=== PATIENT | female | born 1985 | race Caucasian/White ===

== ENCOUNTER 2016-09-05 19:32 | Emergency (ER) | payer OTHER ==
[~2016-09-05] VITALS: Ht 172.7 cm; Wt 95.2 kg
[~2016-09-05 19:32] MED LIST: ALBUTEROL SULF8.5 GM INH; FLEXERIL10 MG PO; IBUPROFEN800 MG PO; NORCO 5-325 TA1 EACH PO; ROBAXIN-750750 MG PO
== END 2016-09-05 21:25 | disposition home or self-care (01) ==
LOC: ED 19:32
DX: S16.1XXA Strain of muscle, fascia and tendon at neck level, initial encounter (principal); S40.012A Contusion of left shoulder, initial encounter; S90.31XA Contusion of right foot, initial encounter; J45.909 Unspecified asthma, uncomplicated; F17.200 Nicotine dependence, unspecified, uncomplicated; Z88.1 Allergy status to other antibiotic agents; V89.2XXA Person injured in unspecified motor-vehicle accident, traffic, initial encounter
CPT/HCPCS: 72040; 73030; 73630; 99283

== ENCOUNTER 2019-10-04 18:38 | Emergency (ER) | payer OTHER ==
[~2019-10-04] VITALS: Ht 172.7 cm; Wt 95.2 kg
== END 2019-10-04 20:30 | disposition left against medical advice (07) ==
LOC: ED 18:38
DX: Z53.21 Procedure and treatment not carried out due to patient leaving prior to being seen by health care provider (principal)

== ENCOUNTER 2019-10-07 21:14 | Emergency (ER) | payer OTHER ==
[~2019-10-07] VITALS: Ht 172.7 cm; Wt 99.8 kg
--- OUTSIDE RECORDS SUMMARY | 2019-10-07 21:18 | XMS ---
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 CRITERIA MET - [facility] - 2 Visits in 30 Days CARE PROVIDERS There are no care providers on record at this time. Declan has no Care Guidelines for this patient. [facility] MO[facility] NOTE: Visits indicate total known visits. ED/UCC VISIT TRACKING (12 MO.) [facility]07[facility]2019 21:15 [facility] COMPLAINT: - ARM PAIN[facility]NON INJ [facility] COMPLAINT: - HEAD PAIN DIAGNOSES: - Procedure and treatment not carried out due to patient leavin INPATIENT VISIT TRACKING (12 MO.) No inpatient visits to display in this time frame [email or web address]
[2019-10-07] MEDS ORDERED: VENTOLIN HFA18 GM INH (21:36)
[2019-10-07] MEDS ORDERED: NORCO 5-325 TA1 EACH PO (21:37)
[2019-10-07] MEDS ORDERED: LISINOPRIL20 MG PO (21:37)
--- NOTE | 2019-10-08 14:37 | EKG ---
[facility] [address] [facility] [place], [place] [address] Signed Normal sinus rhythm Normal ECG No previous ECGs available Confirmed by SHERWIN UREÑA MD ([id number]) on 10/08/2019 2:37:30 PM Electronically Signed By: SHERWIN UREÑA MD 10/08/19 1437 PATIENT NAME: JOSÉGARTHDavid VERGARA Electrocardiogram DATE OF : 83 PHYSICIAN: SHERWIN UREÑA MD REPORT #: [id number] REPORT IS CONFIDENTIAL AND NOT TO BE RELEASED WITHOUT AUTHORIZATION
== END 2019-10-07 22:56 | disposition home or self-care (01) ==
LOC: ED 21:14
DX: M79.602 Pain in left arm (principal); I10 Essential (primary) hypertension; J45.909 Unspecified asthma, uncomplicated; F17.200 Nicotine dependence, unspecified, uncomplicated; Z88.8 Allergy status to other drugs, medicaments and biological substances; Z79.899 Other long term (current) drug therapy
CPT/HCPCS: 93005; 93010; 99283-25; A9270

== ENCOUNTER 2020-03-11 06:34 | Day surgery (SDC) | payer OTHER ==
[~2020-03-11] VITALS: Ht 172.7 cm; Wt 103.2 kg
[~2020-03-11 06:34] MED LIST changes: +LISINOPRIL20 MG PO; +VENTOLIN HFA18 GM INH
[2020-03-11] MEDS ORDERED: HYDROCHLOROTHIA25 MG PO (06:56)
[2020-03-11] MEDS ORDERED: TOPIRAMATE25 MG PO (06:57)
[2020-03-11] MEDS ORDERED: GABAPENTIN300 MG PO (06:58)
--- NOTE | 2020-03-11 07:18 | NUR ---
STATES SHE HAS VERTIGO FREQUENTLY. WAITING FOR TESTING.
--- NOTE | 2020-03-11 07:58 | NUR ---
03/11/20 0758 Kathya Nieves 0754- PT ARRIVES TO PACU AROUSABLE TO VOICE, FALLS TO SLEEP WHEN NOT BEING TALKED TO. RESP EVEN AND UNLABORED. OXYGEN SAT MID TO HIGH 90'S ON 2L O2 VIA NC. PT PASSING FLATUS.
--- NOTE | 2020-03-12 08:34 | OR ---
[facility] [address] [place], [place] [address] Signed DATE OF OPERATION: 03/11/2020 SURGEON: Daniel Moe MD PREOPERATIVE DIAGNOSES: 1. Intermittent diarrhea with rectal bleeding. 2. Sister with history of colitis. POSTOPERATIVE DIAGNOSIS: Unremarkable colonoscopy. PROCEDURE: Colonoscopy with random cold biopsies of the terminal ileum and colon. ESTIMATED BLOOD LOSS: None. INDICATIONS: Garth is a 34-year-old female asked to see me for colonoscopy. In the last month or so, she has been having intermittent episodes of diarrhea associated with bright red blood in the stool. She said it is not every bowel movement. She has tried pxnx-anl-yfkkxgd stool softeners and apparently it made her more constipated. She has tried fiber products, but it made her stomach feel terrible. She has no family history of colon cancer or polyps. She says her sister has some type of colitis for which she takes medications. She also had COVID back in August of 2019. I gave Garth a pamphlet in the office on colonoscopy. We reviewed the nature of the test along with its risks including, but not limited to gas bloating, crampy abdominal pain, bleeding, perforation requiring surgery, and missed diagnosis. We also reviewed the need for IV conscious sedation. She had expressed understanding and wished to proceed. PROCEDURE NOTE: Garth was taken into our endoscopy suite and placed in the left lateral decubitus position. She was talking to us about her ongoing evaluation for her vertigo. She was also a bit anxious for the procedure. In the end, she used 8 mg of Versed and 125 mcg of fentanyl to cover the case. A digital rectal exam was performed and this was unremarkable. No external hemorrhoids. Good sphincter tone. The adult colonoscope was introduced and advanced all around into the cecum under direct visualization of camera without difficulty. Her prep was quite excellent. We could easily see the appendiceal orifice and the ileocecal valve. She took a little extra sedation and abdominal compression in order to advance the scope. We then turned the scope into the terminal Electronically Signed By: DANIEL MOE MD 03/12/20 0834 PATIENT NAME: GARTH KUMAR OPERATIVE REPORT DATE OF : 83 REPORT #: [id number] PHYSICIAN: DANIEL MOE MD PCP: CASSIE BLISS PAC REPORT IS CONFIDENTIAL AND NOT TO BE RELEASED WITHOUT AUTHORIZATION [facility] [address] [place], [place] [address] Signed ileum about 15 cm or so. It looked very healthy to us. We went ahead and took a couple of biopsies out of the terminal ileum. We then withdrew the scope into the colon. The scope was withdrawn throughout the colon. There was no findings whatsoever anywhere in the colon including inflammatory changes. We took random biopsies throughout the colon along with pictures for photodocumentation. The rectum was unremarkable. Upon retroflexion of scope, there was no additional pathology noted above the anal canal. After this, the gas was suctioned out and the colonoscope removed. Garth tolerated the procedure quite well. RECOMMENDATIONS: I will see Garth back in my office in 7 to 14 days to review her results. If she has ongoing issues, she could consider an upper endoscopy with biopsies along with small-bowel follow-through and even a CT scan of abdomen and pelvis and/or a capsule endoscopy. Daniel Moe MD ALB/MODL /[id number] cc: MD Cassie Barrientos PA Copies: DANIEL MOE MD ~ Electronically Signed By: DANIEL MOE MD 03/12/20 0834 PATIENT NAME: GARTH KUMAR URSULA OPERATIVE REPORT DATE OF : 83 REPORT #: [id number] PHYSICIAN: DANIEL MOE MD PCP: CASSIE BLISS PAC REPORT IS CONFIDENTIAL AND NOT TO BE RELEASED WITHOUT AUTHORIZATION
--- NOTE | 2020-03-12 11:09 | PATH ---
[facility] [address] [place], [place] [address] Signed SPECIMEN(S): A TERMINAL ILEUM SPECIMEN(S): B COLON BIOPSY SPECIMEN SOURCE: A. TERMINAL ILEUM B. COLON BIOPSY CLINICAL HISTORY: Colonoscopy with possible biopsy and/or polypectomy. History of diarrhea. MICROSCOPIC DESCRIPTION: Histologic sections of all submitted blocks are examined by light microscopy. These findings, together with the gross examination, support the pathologic diagnosis. FINAL PATHOLOGIC DIAGNOSIS: A. Terminal ileum, biopsy: - Ileal mucosa with no histopathologic abnormality. - Negative for active inflammation or granulomata. - Negative for dysplasia or malignancy. B. Colon, biopsy: - Fragments of colonic mucosa with focal muscularis mucosa thickening. - Negative for active, chronic, or microscopic colitis. - Negative for dysplasia or malignancy. COMMENT: Regarding specimen B: A focal fragment of colonic mucosa demonstrates thickened muscularis mucosa. This could represent a tangential cut of the muscularis mucosa or a small (incidental) leiomyoma. Correlation with colonoscopic findings is recommended. NAL:cml:C2NR GROSS DESCRIPTION: Two specimens are received in two containers, labeled "KR." A. The specimen, labeled "KR, 1," and designated on the requisition "terminal ileum," is received in formalin and consists of two orellana soft tissue fragments that measure 0.4-0.5 cm in greatest dimension. The specimen is entirely submitted in cassette (A1). B. The specimen, labeled "KR, 2," and designated on the requisition "random colon," is received in formalin and consists of four orellana soft tissue fragments that measure 0.3-0.4 cm in greatest dimension. The specimen is entirely submitted in cassette (B1). PATIENT NAME: GARTH KUMAR PATHOLOGY DATE OF : 83 REPORT #: [id number] PHYSICIAN: CANDI DOHERTY PCP: CASSIE BLISS PAC REPORT IS CONFIDENTIAL AND NOT TO BE RELEASED WITHOUT AUTHORIZATION [facility] [address] [place] [address] Signed AT (under the direct supervision of a pathologist) The Gross Description was prepared using a voice recognition system. The report was reviewed for accuracy; however, sound-alike word errors, addition and/or deletions may occur. If there is any question about this report, please contact Client Services. PERFORMING LABORATORY: The technical component was performed by [facility] [address] (Vacation Planner: Marcella Garza MD; CLIA# [id number]). [facility] [place], [address] [address] (CLIA# [id number]). Diagnostician: Saige Parrish MD Pathologist Electronically Signed 03/12/2020 Copies: ~ PATIENT NAME: GARTH KUMAR PATHOLOGY DATE OF : 83 REPORT #: [id number] PHYSICIAN: CANDI DOHERTY PCP: CASSIE BLISS PAC REPORT IS CONFIDENTIAL AND NOT TO BE RELEASED WITHOUT AUTHORIZATION
== END 2020-03-11 08:45 | disposition home or self-care (01) ==
LOC: DS 06:34
PROVIDERS: ATTEND Colon & Rectal Surgery
PROC: 0DBE8ZX Excision of Large Intestine, Via Natural or Artificial Opening Endoscopic, Diagnostic (ICD-10-PCS; 2020-03-11)
PROC: 0DBB8ZX Excision of Ileum, Via Natural or Artificial Opening Endoscopic, Diagnostic (ICD-10-PCS; principal; 2020-03-11 06:45)
DX: K62.5 Hemorrhage of anus and rectum (principal); I10 Essential (primary) hypertension; J30.2 Other seasonal allergic rhinitis; R19.7 Diarrhea, unspecified; F17.210 Nicotine dependence, cigarettes, uncomplicated; Z86.16 Personal history of COVID-19; Z79.899 Other long term (current) drug therapy; Z88.1 Allergy status to other antibiotic agents; Z88.5 Allergy status to narcotic agent; Z20.828 Contact with and (suspected) exposure to other viral communicable diseases
CPT/HCPCS: 84703; 88305; 99153; G0500; J2250; J3010; J7121

== ENCOUNTER 2023-07-11 16:29 | Emergency (ER) | payer OTHER ==
[~2023-07-11] VITALS: Ht 172.7 cm; Wt 124.6 kg
[~2023-07-11 16:29] MED LIST changes: +GABAPENTIN300 MG PO; +HYDROCHLOROTHIA25 MG PO; +HYDROXYZINE HCL25 MG PO; +PREDNISONE50 MG PO; +TOPIRAMATE25 MG PO
[2023-07-11] MEDS ORDERED: ACETAMINOPHEN 500 MG TAB PO ONE (16:45)
[2023-07-11] MEDS ORDERED: AMITRIPTYLINE150 MG PO (17:23)
[2023-07-11] MEDS ORDERED: AJOVY AUTO225 MG/1.5 SUB-Q (17:25)
[2023-07-11] MEDS ORDERED: MAXALT10 MG PO (17:26)
[2023-07-11] MEDS ORDERED: NAPROSYN500 MG PO (17:27)
[2023-07-11 17:44] VITALS: BP 151/97
== END 2023-07-11 17:40 | disposition home or self-care (01) ==
LOC: ED 16:29
DX: S93.401A Sprain of unspecified ligament of right ankle, initial encounter (principal); J45.909 Unspecified asthma, uncomplicated; I10 Essential (primary) hypertension; F17.200 Nicotine dependence, unspecified, uncomplicated; X50.1XXA Overexertion from prolonged static or awkward postures, initial encounter; Y93.89 Activity, other specified; Y92.242 Post office as the place of occurrence of the external cause; Z88.1 Allergy status to other antibiotic agents; Z88.8 Allergy status to other drugs, medicaments and biological substances; Z88.5 Allergy status to narcotic agent; Z79.899 Other long term (current) drug therapy
CPT/HCPCS: 73610; 99283-25; A9270